=== PATIENT | male | born 1995 | race African-American/Black ===

== ENCOUNTER 2018-01-08 14:02 | Emergency (ER) | payer SELFPAY ==
[2018-01-08] MEDS ORDERED: Ketorolac Tromethamine 30 MG/ML VIAL ONE (14:46)
--- NOTE | 2018-01-08 15:46 | RAD ---
RADIOGRAPH LEFT HAND THREE VIEWS: DATE: 01-08-18 TIME: 2:10 p.m. History: 22-year-old male with pain and swelling after blunt trauma. FINDINGS: There is a sagittally oriented nondisplaced fracture lucency at the proximal metaphysis of the fifth metacarpal, extending to the fifth carpometacarpal joint surface. Visible only on the AP view, there is a second sagittally oriented fracture involving the radial side of the proximal metaphysis of the fifth metacarpal, with minimal radial displacement of the medial fracture fragment, with the fracture extending to the junction between the fourth and fifth carpometacarpal joints. There is no dislocati on. No other fracture is identified. IMPRESSION: Acute, traumatic nondisplaced and minimally displaced fractures at the base of the fifth metacarpal. POS: LEXII
== END 2018-01-08 14:54 | disposition home or self-care (01) ==
LOC: ERS 14:02
DX: S62.347A Nondisplaced fracture of base of fifth metacarpal bone, left hand, initial encounter for closed fracture (principal); W21.89XA Striking against or struck by other sports equipment, initial encounter; Y93.67 Activity, basketball; Y92.39 Other specified sports and athletic area as the place of occurrence of the external cause; Y99.8 Other external cause status
CPT/HCPCS: 29125; J1885

== ENCOUNTER 2018-11-26 17:09 | Emergency (ER) | payer SELFPAY ==
[2018-11-26] MEDS ORDERED: hydrOXYzine 25 MG TAB ONE (17:27)
== END 2018-11-26 17:41 | disposition home or self-care (01) ==
LOC: ERS 17:09
DX: B35.4 Tinea corporis (principal)
CPT/HCPCS: 99282

== ENCOUNTER 2019-01-27 04:40 | Emergency (ER) | payer SELFPAY ==
[2019-01-27] MEDS ORDERED: Ibuprofen 800 MG TAB ONE (05:56)
--- NOTE | 2019-01-27 08:29 | RAD ---
RIGHT HAND RADIOGRAPHS 3 VIEWS: DATE: 01/27/2019. PROVIDED CLINICAL HISTORY: Right hand pain status post injury. FINDINGS: No evidence for a fracture or other acute osseous abnormality. If there is persistent clinical eli rn, conservative management and followup imaging are advised. IMPRESSION: As above. POS: LEXII
== END 2019-01-27 06:04 | disposition home or self-care (01) ==
LOC: ERS 04:40
DX: S63.91XA Sprain of unspecified part of right wrist and hand, initial encounter (principal); X50.1XXA Overexertion from prolonged static or awkward postures, initial encounter

== ENCOUNTER 2019-12-12 02:30 | Emergency (ER) | payer SELFPAY ==
[2019-12-12] MEDS ORDERED: Adacel (T-DAP) 0.5 ML SYRINGE ONE (02:43)
== END 2019-12-12 03:19 | disposition home or self-care (01) ==
LOC: ERS 02:30
DX: S09.92XA Unspecified injury of nose, initial encounter (principal); Z23 Encounter for immunization; Y04.2XXA Assault by strike against or bumped into by another person, initial encounter
CPT/HCPCS: 90471; 90715